=== PATIENT | female | born 1955 | race Caucasian/White ===

== ENCOUNTER 2018-03-31 14:00 | Emergency (ER) | payer OTHER ==
[~2018-03-31] VITALS: Ht 160 cm; Wt 68.9 kg
== END 2018-03-31 21:55 | disposition home or self-care (01) ==
LOC: ER 14:00 → CPU-OBS 14:11 → ER 14:11
DX: R07.89 Other chest pain (principal)
CPT/HCPCS: G0378; G0379; 93005